=== PATIENT | female | born 1960 | race Caucasian/White ===

== ENCOUNTER 2017-01-27 15:09 | Emergency (ER) | payer MEDICARE ==
[~2017-01-27] VITALS: Ht 170.1 cm; Wt 71.2 kg
[~2017-01-27 15:09] MED LIST: AMOXICILLIN500 MG PO; ATIVAN0.5 MG PO; BACTRIM DS 8001 TA1 PO; CIPRO500 MG PO; CYCLOBENZAPRINE5 M3 PO; DIFLUCAN150 MG PO; HYDROCODONE BIT1 T11 PO; KEFLEX500 MG PO; MEDROL DOSEPAK4 MG PO; MOTRIN800 MG PO; NAPROSYN500 MG PO; NORCO 325 MG-51 TAB PO; NORCO 5-325 TA1 EACH PO; PARAFON FORTE500 MG PO; PENTASA500 MG PO; PEPCID20 MG PO; PREDNISONE50 MG PO; PREVACID30 M1 PO; PREVACID30 MG PO; TRAMADOL HCL50 MG PO; TRIMOX500 MG PO; ULTRAM50 MG PO; VICODIN 5/500 505 MG PO; VISTARIL25 MG PO; XANAX0.25 MG PO; ZOLOFT50 MG PO; [UNRECOGNIZED DRUG - OTHER] PO
[2017-01-27] MEDS ORDERED: ACETAMINOPHEN-O1 TAB PO (15:35)
[2017-01-27 16:01] LABS: BASO % 0.3 % (0.0-1.0); EOS # 0.1 10*3/uL (0.0-0.4); EOS % 1.4 % (1.0-4.0); HEMATOCRIT 44.9 % (37.0-47.0); HEMOGLOBIN 14.6 g/dl (12.0-16.0); LYMPH # 0.9 10*3/uL (1.3-4.4); LYMPH % 12.2 % (27.0-41.0); MEAN CELL VOLUME 89.3 fl (81.0-99.0); MEAN CORPUSCULAR HGB CONC 32.5 g/dl (33.0-37.0); MEAN PLATELET VOLUME 11.5 fl (9.6-12.3); MONO # 0.7 10*3/uL (0.1-1.0); MONO % 8.6 % (3.0-9.0); NEUT # 5.9 10*3/uL (2.3-7.9); NEUT % 77.2 % (47.0-73.0); PLATELET COUNT AUTOMATED 246 10*3/uL (130-400); RED BLOOD COUNT 5.03 10*6/uL (4.10-5.10); RED CELL DISTRI WIDTH 13.8 % (0-14.5); WHITE BLOOD COUNT 7.7 10*3/uL (4.8-10.8)
[2017-01-27 16:15] LABS: ALBUMIN 3.4 gm/dl (3.1-4.5); ALKALINE PHOSPHATASE 69 U/L (45-117); BILIRUBIN, TOTAL 0.2 mg/dl (0.2-1.0); BUN 14 mg/dl (7-24); CARBON DIOXIDE 29 mmol/L (21-32); CHLORIDE 105 mmol/L (98-107); EST GLOM FILT AFRICAN AMERICAN > 60 ml/min; GLUCOSE 82 mg/dL (65-99); POTASSIUM 3.9 mmol/L (3.5-5.1); SGOT/AST 13 IU/L (3-35); SGPT/ALT 11 U/L (12-78); SODIUM 141 mmol/L (136-145); TOTAL PROTEIN 7.7 gm/dL (6.4-8.2)
[2017-01-27 16:36] LABS: BILIRUBIN NEGATIVE (NEGATIVE); BLOOD NEGATIVE (NEGATIVE); CLARITY SL CLOUDY (CLEAR); COLOR YELLOW (YELLOW); GLUCOSE NEGATIVE (NEGATIVE); KETONE NEGATIVE (NEGATIVE); LEUKO ESTERASE NEGATIVE (NEGATIVE); NITRITE NEGATIVE (NEGATIVE); PROTEIN NEGATIVE (NEGATIVE); UROBILINOGEN 0.2 E.U./dl (0.2-1.0)
[2017-01-27 16:49] LABS: RBC 0-2 rbc/hpf (0-2); WBC 0-2 wbc/hpf (0-5)
[2017-01-27 16:50] LABS: BACTERIA 3+; URINE REFLEX COMMENT YES (NO)
[2017-01-27] MEDS ORDERED: PROBIOTIC1 EAC2 PO (18:50)
[2017-01-27] MEDS ORDERED: FLAGYL500 MG PO (18:50)
[2017-01-27] MEDS ORDERED: PREDNISONE10 MG PO (18:50)
== END 2017-01-27 19:26 | disposition home or self-care (01) ==
LOC: ED 15:09
PROVIDERS: Nurse Practitioner Family
DX: K50.10 Crohn's disease of large intestine without complications (principal); K52.9 Noninfective gastroenteritis and colitis, unspecified; F17.200 Nicotine dependence, unspecified, uncomplicated; F41.9 Anxiety disorder, unspecified; K21.9 Gastro-esophageal reflux disease without esophagitis

== ENCOUNTER 2017-01-30 14:49 | Emergency (ER) | payer MEDICARE ==
[~2017-01-30] VITALS: Wt 71.2 kg
[~2017-01-30 14:49] MED LIST changes: +ACETAMINOPHEN-O1 TAB PO; +FLAGYL500 MG PO; +PREDNISONE10 MG PO; +PROBIOTIC1 EAC2 PO
[2017-01-30 15:38] LABS: BASO % 0.4 % (0.0-1.0); EOS # 0.1 10*3/uL (0.0-0.4); EOS % 0.6 % (1.0-4.0); HEMATOCRIT 45.5 % (37.0-47.0); HEMOGLOBIN 14.6 g/dl (12.0-16.0); LYMPH # 0.9 10*3/uL (1.3-4.4); LYMPH % 11.3 % (27.0-41.0); MEAN CELL VOLUME 88.9 fl (81.0-99.0); MEAN CORPUSCULAR HGB 28.5 pg (27.0-31.0); MEAN CORPUSCULAR HGB CONC 32.1 g/dl (33.0-37.0); MONO # 1.1 10*3/uL (0.1-1.0); MONO % 13.1 % (3.0-9.0); NEUT % 74.1 % (47.0-73.0); PLATELET COUNT AUTOMATED 267 10*3/uL (130-400); RED BLOOD COUNT 5.12 10*6/uL (4.10-5.10); RED CELL DISTRI WIDTH 13.5 % (0-14.5); WHITE BLOOD COUNT 8.1 10*3/uL (4.8-10.8)
[2017-01-30 15:54] LABS: ALBUMIN 3.1 gm/dl (3.1-4.5); ALKALINE PHOSPHATASE 64 U/L (45-117); BILIRUBIN, TOTAL 0.2 mg/dl (0.2-1.0); BUN 11 mg/dl (7-24); CARBON DIOXIDE 28 mmol/L (21-32); CHLORIDE 104 mmol/L (98-107); EST GLOM FILT AFRICAN AMERICAN > 60 ml/min; GLUCOSE 96 mg/dL (65-99); SGOT/AST 16 IU/L (3-35); SGPT/ALT 11 U/L (12-78); SODIUM 141 mmol/L (136-145); TOTAL PROTEIN 7.5 gm/dL (6.4-8.2)
[2017-01-30 16:01] LABS: BILIRUBIN 1+ (NEGATIVE); BLOOD TRACE-INTACT (NEGATIVE); CLARITY SL CLOUDY (CLEAR); COLOR YELLOW (YELLOW); GLUCOSE NEGATIVE (NEGATIVE); KETONE TRACE (NEGATIVE); LEUKO ESTERASE TRACE (NEGATIVE); NITRITE POSITIVE (NEGATIVE); PH 5.5 (5.0-9.0); PROTEIN TRACE (NEGATIVE); SPECIFIC GRAVITY 1.025 (1.005-1.030)
[2017-01-30 16:15] LABS: BACTERIA 2+; MUCOUS TRACE; RBC 0-2 rbc/hpf (0-2); URINE REFLEX COMMENT YES (NO)
[2017-01-30 16:23] LABS: URINE AMPHETAMINES < 1000 (1000ng/ml); URINE BARBITURATES < 200 (200ng/ml); URINE COCAINE < 300 (300ng/ml)
[2017-01-30] MEDS ORDERED: CIPRO500 MG PO (16:23)
== END 2017-01-30 16:34 | disposition home or self-care (01) ==
LOC: ED 14:49
PROVIDERS: Nurse Practitioner Family
DX: N39.0 Urinary tract infection, site not specified (principal); F41.9 Anxiety disorder, unspecified; K21.9 Gastro-esophageal reflux disease without esophagitis; F17.200 Nicotine dependence, unspecified, uncomplicated; Z79.899 Other long term (current) drug therapy

== ENCOUNTER 2017-03-28 11:36 | Inpatient (IN) | payer MEDICARE ==
[~2017-03-28] VITALS: Ht 170.2 cm; Wt 65.6 kg
[2017-03-28] MEDS ORDERED: FAMOTIDINE40 MG PO (11:50)
[2017-03-28] MEDS ORDERED: PEPCID20 MG PO (11:51)
[2017-03-28] MEDS ORDERED: OXYCODONE AND A1 TA4 PO (11:51)
[2017-03-28 11:52] VITALS: BP 126/90
[2017-03-28 12:24] LABS: BASO % 0.2 % (0.0-1.0); BILIRUBIN 2+ (NEGATIVE); BLOOD TRACE-LYSED (NEGATIVE); CLARITY CLOUDY (CLEAR); COLOR YELLOW (YELLOW); EOS % 0.4 % (1.0-4.0); GLUCOSE NEGATIVE (NEGATIVE); HEMATOCRIT 45.6 % (37.0-47.0); HEMOGLOBIN 14.2 g/dl (12.0-16.0); KETONE 1+ (NEGATIVE); LEUKO ESTERASE NEGATIVE (NEGATIVE); LYMPH # 0.9 10*3/uL (1.3-4.4); LYMPH % 9.6 % (27.0-41.0); MEAN CELL VOLUME 88.5 fl (81.0-99.0); MEAN CORPUSCULAR HGB 27.6 pg (27.0-31.0); MEAN CORPUSCULAR HGB CONC 31.1 g/dl (33.0-37.0); MEAN PLATELET VOLUME 10.8 fl (9.6-12.3); MONO # 1.1 10*3/uL (0.1-1.0); NEUT # 7.1 10*3/uL (2.3-7.9); NEUT % 77.4 % (47.0-73.0); NITRITE NEGATIVE (NEGATIVE); PLATELET COUNT AUTOMATED 282 10*3/uL (130-400); PROTEIN TRACE (NEGATIVE); RED BLOOD COUNT 5.15 10*6/uL (4.10-5.10); RED CELL DISTRI WIDTH 14.6 % (0-14.5); WHITE BLOOD COUNT 9.1 10*3/uL (4.8-10.8)
[2017-03-28 12:34] LABS: BACTERIA TRACE; RBC 0-2 rbc/hpf (0-2)
[2017-03-28 12:35] LABS: URINE REFLEX COMMENT NO (NO)
[2017-03-28 12:40] LABS: ALBUMIN 2.7 gm/dl (3.1-4.5); BILIRUBIN, TOTAL 0.3 mg/dl (0.2-1.0); BUN 8 mg/dl (7-24); CARBON DIOXIDE 26 mmol/L (21-32); CHLORIDE 103 mmol/L (98-107); EST GLOM FILT AFRICAN AMERICAN > 60 ml/min; GLUCOSE 86 mg/dL (65-99); POTASSIUM 4.4 mmol/L (3.5-5.1); SGOT/AST 19 IU/L (3-35); SGPT/ALT 8 U/L (12-78); SODIUM 137 mmol/L (136-145); TOTAL PROTEIN 7.2 gm/dL (6.4-8.2)
[2017-03-28 12:41] LABS: ALKALINE PHOSPHATASE 51 U/L (45-117)
[2017-03-28 18:30] VITALS: BP 107/61
[2017-03-28] MEDS ORDERED: AMITRIPTYLINE10 MG PO (19:10)
[2017-03-29] VITALS: BP 96/51
[2017-03-29 06:51] LABS: BASO % 0.4 % (0.0-1.0); EOS % 0.4 % (1.0-4.0); HEMATOCRIT 42.5 % (37.0-47.0); HEMOGLOBIN 13.3 g/dl (12.0-16.0); IG # 0.1 10*3/uL (0.0-0.1); LYMPH # 0.8 10*3/uL (1.3-4.4); LYMPH % 9.8 % (27.0-41.0); MEAN CELL VOLUME 89.9 fl (81.0-99.0); MEAN CORPUSCULAR HGB 28.1 pg (27.0-31.0); MEAN CORPUSCULAR HGB CONC 31.3 g/dl (33.0-37.0); MEAN PLATELET VOLUME 11.3 fl (9.6-12.3); MONO % 11.5 % (3.0-9.0); NEUT # 6.6 10*3/uL (2.3-7.9); NEUT % 77.2 % (47.0-73.0); PLATELET COUNT AUTOMATED 287 10*3/uL (130-400); RED BLOOD COUNT 4.73 10*6/uL (4.10-5.10); RED CELL DISTRI WIDTH 14.7 % (0-14.5); WHITE BLOOD COUNT 8.5 10*3/uL (4.8-10.8)
[2017-03-29 07:10] LABS: HEMOGLOBIN A1c 5.9 % (4.8-5.6)
[2017-03-29 07:15] LABS: BUN 9 mg/dl (7-24); CARBON DIOXIDE 22 mmol/L (21-32); CHLORIDE 104 mmol/L (98-107); CHOLESTEROL 152 mg/dL (<200); EST GLOM FILT AFRICAN AMERICAN > 60 ml/min; GLUCOSE 53 mg/dL (65-99); HDL CHOLESTEROL 33 mg/dl (40-60); LDL CHOLESTEROL 83 mg/dL (9-159); POTASSIUM 3.9 mmol/L (3.5-5.1); SODIUM 141 mmol/L (136-145); TRIGLYCERIDES 181 mg/dl (<150); VLDL CHOLESTEROL 36 mg/dL (6-40)
[2017-03-29 07:22] LABS: FREE T4 1.34 ng/dl (0.76-1.46)
[2017-03-29 07:50] LABS: FOLIC ACID 14.83 ng/mL (>5.38)
[2017-03-29 08:00] VITALS: BP 100/52
[2017-03-29 08:04] LABS: VITAMIN D, 25-HYDROXY 7.9 ng/mL (30-100)
[2017-03-29 11:48] VITALS: BP 114/65
[2017-03-29] MEDS ORDERED: KROGER NIC21 MG/24 H T (13:56)
[2017-03-29] MEDS ORDERED: PROTONIX40 M1 IV (13:56)
[2017-03-29] MEDS ORDERED: B12,B-12,B 12500 MC1 PO (13:56)
[2017-03-29] MEDS ORDERED: VITAMIN D50000 I3 PO (13:56)
[2017-03-29] MEDS ORDERED: MORPHINE SULF2 MG/M1 IV (13:56)
[2017-03-29] MEDS ORDERED: ONDANSETRON H2 MG/ML IV (13:56)
== END 2017-03-29 16:20 | disposition short-term general hospital (02) | DRG 754 ==
LOC: ED 11:36 → EDHOLD 17:43 → 4E 17:43
PROVIDERS: Internal Medicine; Nurse Practitioner Family
DX: C56.9 Malignant neoplasm of unspecified ovary (principal); E43 Unspecified severe protein-calorie malnutrition; C79.89 Secondary malignant neoplasm of other specified sites; K50.014 Crohn's disease of small intestine with abscess; R18.8 Other ascites; F41.9 Anxiety disorder, unspecified; F17.210 Nicotine dependence, cigarettes, uncomplicated; K21.9 Gastro-esophageal reflux disease without esophagitis; Z82.49 Family history of ischemic heart disease and other diseases of the circulatory system; Z79.899 Other long term (current) drug therapy; Z79.1 Long term (current) use of non-steroidal anti-inflammatories (NSAID); Z68.22 Body mass index [BMI] 22.0-22.9, adult; Z80.0 Family history of malignant neoplasm of digestive organs

== ENCOUNTER 2017-09-21 18:55 | Inpatient (IN) | payer MEDICARE ==
[~2017-09-21] VITALS: Ht 170.2 cm; Wt 50.0 kg
--- NOTE | ~2017-09-21 | PR ---
[place], [place] PROGRESS NOTE NAME: GUILLERMO GIBSON UNIT #: [id number] ROOM: [place] [address] DOCTOR: GHAZALA ROBIN MD BIRTHDATE: [birth year] DOS: 09/22/2017 The patient was seen because of ovarian cancer, anasarca, full consult to follow. The patient's workup is being done. GHAZALA ROBIN MD CM:PNTRANS 9 [phone] GHAZALA ROBIN MD 09/22/17 1828 interface
--- NOTE | ~2017-09-21 | CON ---
[place], [place] REPORT OF CONSULTATION NAME: GUILLERMO GIBSON UNIT #: [id number] ROOM: [facility] DOCTOR: KITTY WESTON MD BIRTHDATE: [birth year] DOS: 09/23/2017 PULMONARY CONSULTATION EVALUATION AND MANAGEMENT REASON FOR CONSULTATION: To assess the patient for symptoms of shortness of breath and other respiratory problems. HISTORY OF PRESENT ILLNESS: A 56-year-old unfortunate female patient who has been noted with progressive cachexia with the diagnosis of advanced cancer of the ovaries. The patient was noted with recurrence of the ascitic fluid. The patient has been treated with several paracentesis in the past. She has been admitted in [facility]. The patient with a diagnosis of malignancy was established at that time. She has been admitted to the hospital for this patient under care of the hospitalist service of the patient on 09/21/2017. In the consultation, physician request as a hospitalist services. The patient has been currently noted as severely emaciated, noted with symptoms of shortness of breath. The patient has tightness in the chest described on admission. She was also complaining of nonspecific chest pain as well. The patient does report only minimal cough. There were symptoms of hemoptysis. She has not been noted any symptoms of hemoptysis. She has been noted with symptoms of progressive weight loss. REVIEW OF SYSTEMS: Very limited. She was noted as severely weak, emaciated, and bedbound. EYES: Denies any burning, redness, or discharge. EARS, NOSE, AND THROAT SYMPTOMS: No sore throat, hoarseness, otalgia, postnasal drainage, or epistaxis. CARDIOVASCULAR: Denies anginal pain, edema, or pain of the lower extremity. GASTROINTESTINAL: Abdominal distention. The patient has been noted intermittently with bloating. Pain was also described in the abdomen of the patient intermittently as well. There were symptoms of hematochezia. GENITOURINARY: Dysuria, suprapubic pain, and hematuria. MUSCULOSKELETAL: No acute joint pain, redness, or tenderness. CENTRAL NERVOUS SYSTEM: Progressive weakness. The patient was noted without any focal deficits. PAST MEDICAL HISTORY: 1. The patient was known with a diagnosis of metastatic malignancy in the abdomen, most likely originating from the ovary that has not been treated. 2. History of Crohn's disease for the patient with past abscesses formation. 3. History of diverticulosis and diverticulitis. 4. Deep venous thrombosis in left lower extremity, which has been treated previously with Xarelto. 4. Progressive cachexia. The patient has weight loss secondary to malignancy. 5. Malignant peritoneal fluid. 6. History of vitamin D deficiency. 7. Anxiety disorder. SOCIAL HISTORY: The patient is currently not , was living at home. She does have a boyfriend, who lives with the patient. She was noted lifetime [place], [place] REPORT OF CONSULTATION NAME: GUILLERMO GIBSON UNIT #: [id number] ROOM: [facility] DOCTOR: KITTY WESTON MD BIRTHDATE: [birth year] nonsmoker. No history of chronic alcohol use or any illicit drugs use described. PAST SURGICAL HISTORY: Noted as: 1. Knee surgery. 2. Laparoscopy. 3. T and A. 4. Several paracentesis in the past. FAMILY HISTORY: The patient reported as mother at the age of 61-year-old from complication of colon cancer. Father at the age of 61-year-old from heart attack. HOME MEDICATIONS: Noted use of Protonix, vitamin D, OxyContin, and previous use of Xarelto. DRUG ALLERGY HISTORY: The patient was reported as no known drug allergies. PHYSICAL EXAMINATION: GENERAL: This is a 56-year-old extremely ill looking female noted severe cachexia of the patient and ill looking. She was seen for this patient at the bedside. She was not showing any signs of respiratory distress, using oxygen supplementation nasal cannula. VITAL SIGNS: Height was recorded for the patient on this admission as 5 feet 7 inches, weight of 110 pounds with BMI 17.2. Vital signs for the patient, which has been recorded shows temperature noted as normal, respiratory rate 17-20, heart rate of 110-92, blood pressure of 88/54-118/70. Intake is 506, output was 100 mL reported without Godinez catheter. Pulse oxygen saturation 96% at 2 liters nasal cannula reported. HEENT: Examination shows head was atraumatic. EYES: Nonicterus. Sunken eyes of the patient was noted. Severe loss of muscle mastication was also visible obviously. No obvious icterus. CARDIOVASCULAR: S1, S2 is audible. LUNGS: The patient was noted with decreased breath sounds in the lower portion of the lungs bilaterally. ABDOMEN: Noted with the distention without any tenderness. CENTRAL NERVOUS SYSTEM. Severe loss of muscle mass for the patient was noted with generalized weakness, but there were no focal deficits. MUSCULOSKELETAL: No acute deformities. LABORATORY DATA: On admission, Lactic acid on 09/21/2017 was 2.5, follow up lactic acid 2.1 same day. The PT/INR 1.2 and PTT normal on admission. The CBC on admission 09/21/2017, hemoglobin 11.5, otherwise normal. CMP of the patient of 09/21/2017, BUN 41, creatinine 1.33 on admission. Sodium 132. Albumin 2.1. VQ scan for the patient that was done for this patient on this admission 09/22/2017 was noted normal perfusion study. Blood culture from the showed no bacterial growth. The culture of the sputum of the patient of 09/22/2017, few white blood cells, moderate epithelial cells, moderate gram-positive cocci in pairs and chains, moderate gram-negative bacilli with moderate gram-negative bacilli growth was noted with pending final identification and sensitivity [place], [place] REPORT OF CONSULTATION NAME: GUILLERMO GIBSON UNIT #: [id number] ROOM: [facility] DOCTOR: SAMM JENNINGS MD,[facility] BIRTHDATE: [birth year] results. CA-125 level are noted severely elevated at 415. CBC this morning, hemoglobin 8.3, hematocrit 26.5, WBC count was 12.5, and platelet count of 157. PT/PTT repeated again this morning shows INR of 1.2, PTT therapeutic 76.6. CMP of the patient of 09/23/2017, BUN of 57, creatinine 1.61. Sodium 133. Albumin of 3.0. Total bilirubin of 1.6. Ultrasound of the lower extremity repeated for this patient shows nonocclusive DVT on the left superficial femoral veins. The age was undetermined. The chest x-ray of the patient does not show any acute abnormality. CT scan of the chest, which was done without contrast limited the finding of the mediastinum was noted with a very small left-sided pleural fluid. Remaining lung was noted clear of any abnormality including abnormal pulmonary nodules or mass-like lesions. CT scan images were personally reviewed from the PACS images as well. The abdominal portion of the CT scan for this patient, the findings were described in the radiologist report for this patient has a large loculated complex fluid collection in the anterior abdominal wall occupying the majority of the abdomen displacing the bowel for this patient in the abdominal contents posteriorly. The collection does contained the fluid and air. The source of the air was noted unclear. A 7.4 cm cyst was described in the right ovary as well. Ultrasound for the patient was reported. Cachexia and finding of anasarca was also reported. Ultrasound of the abdomen was completed on 09/22/2017 for the patient that reported with findings of large loculated complex fluid collection of the patient anterior abdomen. A 15.4 x 5.1 cm in size sludge were described in the gallbladder. Innumerable septation were described in the collection. IMPRESSION: 1. The patient who has been currently admitted to the hospital. The patient noted symptoms of shortness of breath most likely related to the current complex. ascitic fluid in the abdomen of the patient resulting in some elevation of the hemidiaphragm resulting in shortness of breath. The patient has been known with advanced ovarian cancer, which was untreated for this patient. 2. Current ____ gram-negative bacilli most likely would be considered colonization of the upper airways and not consistent with any acute pneumonia. 3. History of chronic deep venous thrombosis of the patient, which has been currently noted to be present again for this patient. The patient was taking Xarelto until 10 days ago prior to the admission to the hospital. There was no evidence of pulmonary embolism. 4. Severe cachexia. The patient with progressive weight loss, was noted to decrease oral intake as well. PLAN AND RECOMMENDATIONS: From the pulmonary standpoint. The finding has been discussed with the patient and the patient's boyfriend. Palliative care was suggested for this patient. He is worried about the patient's nutritional status and the patient with severe protein calorie malnutrition. For this patient at this time, minimum recommendation would be to have a PEG tube inserted for this patient if noted surgically or endoscopy feasible. Consider hospice care assessment. I would not recommend any antibiotics for the patient's current sputum culture results. Continue medical management for deep venous thrombosis. The patient currently getting therapeutic unfractionated heparin, the patient could be switched back to either Coumadin or resuming the dose of Xarelto for this patient or Eliquis for this patient, therapeutic dose [place], [place] REPORT OF CONSULTATION NAME: GUILLERMO GIBSON UNIT #: [id number] ROOM: [facility] DOCTOR: KITTY WESTON MD BIRTHDATE: [birth year] for this patient. Other supportive plan and management. The patient's overall prognosis is noted extremely poor. Symptomatic management, shortness of breath could be considered with use of the morphine sulfate orally or intravenously as needed. Oxygen supplementation may be given to maintain oxygen saturation of 92% or greater. The patient has already been assessed and managed by the Oncology services. Surgical consultation has been also noted in progress for this patient for the assessment of the current complex loculated fluid of the patient in the abdomen ascitic fluid of the patient. Possibility of malignant fluid for this patient and/or infection combination could be considered. KITTY QUIJANO MD CM:CONSTR:REPORT OF CONSULTATION 1405 09/24/17 0513 interface
--- NOTE | ~2017-09-21 | CON ---
[place], [place] REPORT OF CONSULTATION NAME: GUILLERMO GIBSON UNIT #: [id number] ROOM: 524 DOCTOR: KARL ROSAS MD BIRTHDATE: [birth year] DOS: 09/22/2017 HISTORY OF PRESENT ILLNESS: 1. The patient is a 56-year-old female with metastatic ovarian cancer. 2. Severe protein-calorie malnutrition and cachexia with adult failure to thrive. 3. Abdominal pain and large ascites related to ovarian cancer. 4. History of right ovarian mass. 5. History of left lower extremity deep venous thrombosis. 6. Generalized muscle wasting and adult failure to thrive. 7. History of nicotine smoke dependence. 8. Mixed hyperlipidemia. 9. History of major depression, recurrent, moderate. 10. Generalized anxiety disorder. 11. History of Crohn's disease. The patient is presently admitted to ICU at [facility] with a full code status with large ascites, generalized weakness and muscle wasting with severe protein-calorie malnutrition and a diagnosis of metastatic ovarian cancer. The patient, in the past, had refused chemotherapy. Dr. Reina, the oncologist, is on consult and a paracentesis was performed by Dr. Goodson, the radiologist. The patient is admitted under the care of Dr. Alexsander Vazquez. The patient says she is very uncomfortable and hurts at different places and is very restless and uncomfortable in almost any position. REVIEW OF SYSTEMS: LUNGS: No increasing shortness of breath or wheezing. GASTROINTESTINAL: No nausea, vomiting, diarrhea or constipation. Just some abdominal pain and distention. SOCIAL HISTORY: Previous history of nicotine smoke dependence. Denies any alcohol or drug abuse. FAMILY HISTORY: Noncontributory. ALLERGIES: No known drug allergies. MEDICATIONS: The patient is on oxycodone, temazepam, fentanyl IV. PHYSICAL EXAMINATION: GENERAL: Alert and oriented x 3, cachectic with generalized muscle wasting and weakness, some abdominal distention. HEENT AND NECK: Extraocular movements are intact. Sclerae are anicteric. Oral mucosa is moist and clean. No obvious facial weakness. Neck is supple without any lymphadenopathy. No thyromegaly. No JVD. No carotid arterial bruits. LUNGS: Clear to auscultation. No wheezing. No rhonchi. CARDIOVASCULAR SYSTEM: Heart rate is regular in rate and rhythm. S1 and S2 normally audible. No significant murmur or any other abnormal cardiac sounds. ABDOMEN: Soft, nontender. No obvious organomegaly. Bowel sounds are present. No obvious herniation. [place], [place] REPORT OF CONSULTATION NAME: GUILLERMO GIBSON UNIT #: [id number] ROOM: 524 DOCTOR: KARL ROSAS MD BIRTHDATE: [birth year] EXTREMITIES: Without significant cyanosis or edema. Warm to touch. CENTRAL NERVOUS SYSTEM: Alert and oriented x 3. Cranial nerves II-XII are intact. Speech is normal. The patient is able to move all extremities. Normal muscle strength. Deep tendon reflexes are equal on both sides. Plantars were downgoing. LABORATORY DATA: Echocardiogram shows reduced left ventricular ejection fraction. Ultrasound of the abdomen and pelvis showing hepatic steatosis, large loculated complex fluid collection in the anterior abdomen. Doppler study showing left deep vein thrombosis. V/Q scan showing no signs of PE. Hemoglobin low at 10.9, white cell count 11,200. BUN and creatinine 45 and 1.3. IMPRESSION AND PLAN: The patient with advanced ovarian cancer with metastatic disease, cachexia, severe protein calorie malnutrition with an albumin of 2.1, generalized muscle wasting and weakness with poor prognosis. I had a detailed discussion with the patient and her boyfriend, Larry Hooper. The patient wants him to be his durable power of senior trial attorney, but she is alert and oriented and able to make decisions for herself at this time. The patient is in the ICU and understands that she wants to avoid aggressive treatment like intubation and mechanical ventilation, also CPR and cardioversion. The patient says that she would like to have a DNR comfort care code status and definitely would not like to be on mechanical ventilation. The patient also is interested in getting a consult with hospice to follow her at home where she is taken care of by her boyfriend who stays with her. Continue comfort care and nutritional support with bed sore precaution and every 2-hour turning and comfort care treatment only, with good pain and anxiety control and watch out for any respiratory distress, which could be treated with morphine and Ativan and use of atropine as necessary. KARL ROSAS MD CM:CONSTR:REPORT OF CONSULTATION 1905 09/23/17 0115 interface
--- NOTE | ~2017-09-21 | PR ---
[place], [place] PROGRESS NOTE NAME: GUILLERMO GIBSON UNIT #: [id number] ROOM: [facility] DOCTOR: GHAZALA ROIBN MD BIRTHDATE: [birth year] DOS: 09/23/2017 SUBJECTIVE: The patient was evaluated. Continues to have some abdominal pain. PHYSICAL EXAMINATION: GENERAL: Pleasant woman in no acute distress. VITAL SIGNS: Stable. She is afebrile. HEENT: Normocephalic, atraumatic NECK AND THYROID: Supple. No JVD, thyromegaly, or lymphadenopathy. HEART: Normal S1, S2. Regular rate and rhythm. LUNGS: Clear to auscultation and percussion. EXTREMITIES: Normal ROM. No clubbing. No edema. ASSESSMENT: 1. Metastatic ovarian cancer diagnosed in 03/2017 at [facility], but she refused any chemotherapy. She did go for surgery, but she was closed as per the family. 2. Possibly hypercoagulable state. 3. Acute renal failure with tubular necrosis. 4. Leukocytosis, reactive. 5. Anemia of neoplastic disorder. PLAN: We will wait for the records from [facility]. I have discussed with the family, overall condition is not that great. We will keep a close watch at this time. I had a detailed discussion with the family about it, and they seemed to understand it. Ample time was given for the patient ask me questions. GHAZALA ROBIN MD CM:PNTRANS [phone] GHAZALA ROBIN MD 09/24/17 0235 interface
[~2017-09-21 18:55] MED LIST changes: +AMITRIPTYLINE10 MG PO; +B12,B-12,B 12500 MC1 PO; +FAMOTIDINE40 MG PO; +KROGER NIC21 MG/24 H T; +MORPHINE SULF2 MG/M1 IV; +ONDANSETRON H2 MG/ML IV; +OXYCODONE AND A1 TA4 PO; +PROTONIX40 M1 IV; +VITAMIN D50000 I3 PO
[2017-09-21 19:00] VITALS: BP 112/80
[2017-09-21 19:30] VITALS: BP 120/78
[2017-09-21 19:41] LABS: HEMATOCRIT 37.3 % (37.0-47.0); HEMOGLOBIN 11.5 g/dl (12.0-16.0); MEAN CELL VOLUME 84.6 fl (81.0-99.0); MEAN CORPUSCULAR HGB 26.1 pg (27.0-31.0); MEAN CORPUSCULAR HGB CONC 30.8 g/dl (33.0-37.0); MEAN PLATELET VOLUME 11.1 fl (9.6-12.3); PLATELET COUNT AUTOMATED 272 10*3/uL (130-400); RED BLOOD COUNT 4.41 10*6/uL (4.10-5.10); RED CELL DISTRI WIDTH 22.2 % (0-14.5); WHITE BLOOD COUNT 9.4 10*3/uL (4.8-10.8)
[2017-09-21 19:50] LABS: LIPASE 26 U/L (73-393)
[2017-09-21 19:51] LABS: ACT PARTIAL THROMBO TIME 30.1 SECONDS (20.8-31.5); INTERNATIONAL NORM RATIO 1.2 (2.0-3.5)
[2017-09-21 19:58] LABS: ALBUMIN 2.1 gm/dl (3.1-4.5); ALKALINE PHOSPHATASE 129 U/L (45-117); BUN 41 mg/dl (7-24); CHLORIDE 95 mmol/L (98-107); CREATININE 1.33 mg/dL (0.55-1.02); POTASSIUM 4.8 mmol/L (3.5-5.1); SGOT/AST 15 IU/L (3-35); SGPT/ALT 7 U/L (12-78); SODIUM 132 mmol/L (136-145); TOTAL PROTEIN 6.4 gm/dL (6.4-8.2)
[2017-09-21 20:02] VITALS: BP 118/62
[2017-09-21 20:02] LABS: TOTAL CELLS COUNTED 100 #CELLS
[2017-09-21 20:04] LABS: PLATELET SUFFICIENCY NORMAL (NORMAL)
[2017-09-21 20:05] LABS: TROPONIN I < 0.015 ng/ml (<0.045)
--- NOTE | 2017-09-21 20:15 | NUR ---
PT DENIES ANY PAIN AT THIS TIME DILAUDID EFFECTIVE FOR PAIN.
[2017-09-21 21:02] VITALS: BP 118/68
[2017-09-21 22:02] VITALS: BP 124/68
[2017-09-21 23:19] VITALS: BP 118/70
--- NOTE | 2017-09-21 23:20 | NUR ---
PT DENIES ANY PAIN AT THIS TIME, DILAUDID EFFECTIVE. UNABLE TO OBTAIN SPUTUM, PT UNABLE TO COUGH.
[2017-09-22] VITALS (7 sets, daily range): BP systolic 85–118; BP diastolic 50–72
--- NOTE | 2017-09-22 00:33 | NUR ---
A 56, admitted to , under the services of BENNETT Landry DO with a diagnosis of CHEST PAIN AND SHORTNESS OF BREATH. Chief complaint is CHEST TIGHTNESS AND NAUSEA THAT STARTED SEVERAL DAYS AGO.. Patient arrived via OTHER from ER. Monitor applied. Initial assessment completed. Vital signs taken and recorded. BENNETT LANDRY DO notified of admission to the unit. Orders received. See assessment for past medical history, medications and allergies. Patient and/or family oriented to unit. [facility] visitation policy reviewed. Clothing/patient valuable form completed. ABDIFATAH DORAN A
[2017-09-22] MEDS ORDERED: OXYCODONE HCL10 M1 PO (01:52)
[2017-09-22] MEDS ORDERED: XARELTO10 MG PO (01:53)
--- NOTE | 2017-09-22 03:27 | NUR ---
PT IN BED, RESTING COMFORTABLY WITH EYES CLOSED. FAMILY IN ROOM, SLEEPING.
[2017-09-22 04:03] LABS: HEMOGLOBIN 10.9 g/dl (12.0-16.0); MEAN CORPUSCULAR HGB 26.5 pg (27.0-31.0); MEAN CORPUSCULAR HGB CONC 31.1 g/dl (33.0-37.0); MEAN PLATELET VOLUME 10.7 fl (9.6-12.3); PLATELET COUNT AUTOMATED 231 10*3/uL (130-400); RED BLOOD COUNT 4.12 10*6/uL (4.10-5.10); RED CELL DISTRI WIDTH 22.3 % (0-14.5); WHITE BLOOD COUNT 11.2 10*3/uL (4.8-10.8)
--- NOTE | 2017-09-22 04:10 | NUR ---
PT TRANSFERRED TO ICU #11 FROM [facility]. PT DROWSY BUT AWAKENS AND ANSWERS QUESTIONS APPROPRIATELY. RESP NONLABORED. SKIN WARM AND DRY. RIGHT MEDIPORT PATENT, DRESSING DRY AND INTACT. BP 95/59, T 97.3, P 108, R 12, POX 98% ON RA. NO ACUTE DISTRESS NOTED. ST ON MONITOR.
[2017-09-22 04:20] LABS: ACT PARTIAL THROMBO TIME 39.1 SECONDS (20.8-31.5); INTERNATIONAL NORM RATIO 1.2 (2.0-3.5)
[2017-09-22 04:21] LABS: ALBUMIN 2.1 gm/dl (3.1-4.5); CREATININE 1.31 mg/dL (0.55-1.02); PHOSPHOROUS 3.8 mg/dL (2.5-4.9); POTASSIUM 4.9 mmol/L (3.5-5.1); TOTAL PROTEIN 6.2 gm/dL (6.4-8.2)
[2017-09-22 04:22] LABS: FREE T4 1.28 ng/dl (0.76-1.46)
[2017-09-22 04:27] LABS: THYROID STIM HORMONE (HS) 0.653 uIU/ml (0.358-4.75)
[2017-09-22 04:32] LABS: PLATELET SUFFICIENCY NORMAL (NORMAL); TOTAL CELLS COUNTED 100 #CELLS
[2017-09-22 04:33] LABS: TOXIC GRANULATION SLIGHT
--- NOTE | 2017-09-22 07:24 | NUR ---
DR. NIEVES AWARE OF CONSULT.
--- NOTE | 2017-09-22 07:27 | NUR ---
MEDICATED WITH PRN MORPHINE PER ORDER AND REQUEST.
[2017-09-22 07:57] LABS: VITAMIN D, 25-HYDROXY 5.3 ng/mL (30-100)
--- NOTE | 2017-09-22 08:25 | NUR ---
PATIENT TAKEN TO RADIOLOGY FOR MULTIPLE TESTS.
--- NOTE | 2017-09-22 08:32 | NUR ---
DR. CARDONA GROUP PAGED.
[2017-09-22 08:35] LABS: BILIRUBIN 2+ (NEGATIVE); BLOOD 2+ (NEGATIVE); CLARITY CLOUDY (CLEAR); COLOR YELLOW (YELLOW); GLUCOSE NEGATIVE (NEGATIVE); KETONE TRACE (NEGATIVE); NITRITE NEGATIVE (NEGATIVE); SPECIFIC GRAVITY 1.025 (1.005-1.030)
--- NOTE | 2017-09-22 08:43 | NUR ---
PHYSICAL THERAPY PATIENT TRANSFERRED TO ICU THUS WILL NEED NEW ORDERS WHEN MEDICALLY APPROPRIATE THANK YOU FOR REFERRAL SHANELLE BEEBE PT
[2017-09-22 08:44] LABS: LEUKO ESTERASE TRACE (NEGATIVE)
--- NOTE | 2017-09-22 08:46 | NUR ---
PATIENT NOT AVAILABLE FOR ECHO. OFF THE FLOOR FOR OTHER TESTING.
[2017-09-22 08:53] LABS: BACTERIA 3+; EPITHELIAL CELLS 20-30; MUCOUS 1+
--- NOTE | 2017-09-22 10:48 | NUR ---
[facility] A[facility] in to see patient. Patient requested if I can come back at a later time or even tomorrow because she doesn't feel well at the moment. Will follow at a later time.
--- NOTE | 2017-09-22 12:21 | NUR ---
DR. QUIJANO AWARE OF CONSULT.
--- NOTE | 2017-09-22 12:31 | NUR ---
MEDICATED WITH FENTANYL PER ORDER AND REQUEST.
--- NOTE | 2017-09-22 12:55 | NUR ---
PHYSICAL THERAPY Nursing screen for PT received. Orders for PT present. Maria Luisa Driver,PT
--- NOTE | 2017-09-22 16:55 | NUR ---
MEDICATED WITH PRN FENTANYL PER REQUEST. EARLIER DOSE EFFECTIVE.
--- NOTE | 2017-09-22 17:36 | NUR ---
LEFT A MESSAGE WITH PALLATIVE CARE NURSE.
--- NOTE | 2017-09-22 19:56 | NUR ---
PATIENT GIVEN REGLAN FOR NAUSEA ORDRED.
--- NOTE | 2017-09-22 20:20 | NUR ---
REPORT CALLED TO REGINA GRESHAM RN.
--- NOTE | 2017-09-22 20:31 | NUR ---
DOCTOR ANGELO TO THE FLOOR PATIENT HAS BEEN ASKING FOR PAIN MEDICATION SHE SAID TO GO AHEAD AND GIVE IT NOW. PAIN MEDICATION GIVEN.
[2017-09-23] VITALS (12 sets, daily range): BP systolic 68–97; BP diastolic 34–56
--- NOTE | 2017-09-23 02:10 | NUR ---
MEDICATED WITH MORPHINE 2MG FOR COMPLAINTS OF PAIN. WILL MONITOR FOR EFFECTIVENESS. CALL LIGHT IN REACH.
[2017-09-23 07:08] LABS: MEAN CORPUSCULAR HGB 26.9 pg (27.0-31.0); MEAN CORPUSCULAR HGB CONC 31.3 g/dl (33.0-37.0); MEAN PLATELET VOLUME 11.9 fl (9.6-12.3); RED BLOOD COUNT 3.08 10*6/uL (4.10-5.10); RED CELL DISTRI WIDTH 22.5 % (0-14.5); WHITE BLOOD COUNT 12.5 10*3/uL (4.8-10.8)
[2017-09-23 07:09] LABS: HEMATOCRIT 26.5 % (37.0-47.0); HEMOGLOBIN 8.3 g/dl (12.0-16.0); PLATELET COUNT AUTOMATED 157 10*3/uL (130-400)
[2017-09-23 07:33] LABS: CREATININE 1.61 mg/dL (0.55-1.02); PHOSPHOROUS 3.2 mg/dL (2.5-4.9); POTASSIUM 4.8 mmol/L (3.5-5.1)
--- NOTE | 2017-09-23 07:33 | NUR ---
Medicated with reglan iv per prn order for c/o nausea.
[2017-09-23 07:41] LABS: ACT PARTIAL THROMBO TIME 76.6 SECONDS (20.8-31.5); INTERNATIONAL NORM RATIO 1.2 (2.0-3.5)
[2017-09-23 07:52] LABS: TOTAL CELLS COUNTED 100 #CELLS
[2017-09-23 07:53] LABS: PLATELET SUFFICIENCY NORMAL (NORMAL); TARGET CELLS FEW; TOXIC GRANULATION SLIGHT
--- NOTE | 2017-09-23 08:10 | NUR ---
APPT reviewed result of 76.6 noted which calls for no change per heparin protocol. Heparin gtt remains at 8.8 cc/hr.
--- NOTE | 2017-09-23 09:05 | NUR ---
Medicated with morphine iv per prn order for generalized body pain.
--- NOTE | 2017-09-23 10:00 | NUR ---
States morphine effective for pain.
--- NOTE | 2017-09-23 11:30 | NUR ---
Die Caster in to see patient. Patient resting at this time. Will follow up at a later time.
--- NOTE | 2017-09-23 12:43 | NUR ---
DR. CEE in and examined pt with Dr. Beltre. Discussed plan of care with pt. I notified Dr. Cee that Dr. Allen said he spoke with the pt and her significant other. Dr. Allen had stated that significant other questioned if pt could have a peg tube placed. Significant other is currently not in room at this time but pt denies this.
--- NOTE | 2017-09-23 13:17 | NUR ---
Cigar Binder in to talk to patient. Patient states lives at home with boyfriend. There are no steps in the home. Physician: Leonel Diego [facility] Home health services: none Patient's level of ADLs: MAX ASSIST Patient has working utilities: yes DME: hospital bed and hover round on order per pt Follow-up physician's appointment after d/c: will be made by hospitalist nurse director upon discharge Does patient want to access PORTAL?: no Discharge plan home with palliative care and family. Patient lives at home with her boyfriend. Per pt she was driving and ambulating with assistance up until 5 days ago. Discussed Hospice Care vs Palliative Care. Patient states she does not want Hospice, she wants to be able to keep fighting. "I am not dying." Boyfriend request we come back in about an hour when other family is available to speak with also. industrial relations worker present. WILFRED RASHEED
--- NOTE | 2017-09-23 14:10 | NUR ---
Spoke to patient's significant other and his mother regarding palliative care vs hospice care when the patient is medically stable to be discharged. Pamphlets given to the significant other regarding the differences between palliative and hospice care. Patient request palliative care at this time. Discussed with significant other agency choices for palliative care. They will talk about it and let us know. house worker general present. Patient wants to be a full code and have CPR and intubation done if that is what is needed. Spoke to her nurse, Arsh.
--- NOTE | 2017-09-23 14:43 | NUR ---
Mary Ann Willis nursing detasseling crew supervisor notified of situation with bioethics consult. Updated her on situation with pt changing code status yesterday to DNR-CC and pt boyfriend and his mother here today with case management speaking with pt and case management regarding pt not wanting to be a DNR-CC. Notified Mary Ann that when Dr. Cee rounded earlier on pt, pt stated that she did not want lifesupport, she did not want CPR. States she will text her regarding this and her recommendations at this time.
--- NOTE | 2017-09-23 14:48 | NUR ---
Spoke with Dr. Beltre, awaiting bioethics consult. In the meantime pt is full code as she agreed to this when speaking with boyfriend and case management.
--- NOTE | 2017-09-23 15:09 | NUR ---
Morphine iv given per prn order for complaints of rib pain.
--- NOTE | 2017-09-23 15:18 | NUR ---
MBP was 78/50. Dr. Shetty notified.
--- NOTE | 2017-09-23 15:38 | NUR ---
Recieved emaciated, lethargic patient w/ mouth agape to ICCU #11, Family changed code status to full code after pt. being pallative care only, On arrival pt. responds to verbal command , slowly is hypotensive , hypoxic w/ SAT of 92% RR of 8. Fentnyl patch removed and wasted. Full assessment noted w/ reddened coccyx. sureprep and pad applied to dayna prominence. IVF up to infuse. Dr. Beltre made aware of need for continued or further orders.
--- NOTE | 2017-09-23 15:45 | NUR ---
Pt was transfered to ICCU via bed and report was given to Pamela Willett RN.
--- NOTE | 2017-09-23 19:51 | NUR ---
CALLED DOCTOR BARRY PATIENT BP IS 87/56 RESP 9 . PATIENT HAS COMPLAINTS OF PAIN ALL OVER. HE SAID HE WOULD COME TALKE TO THE PATIENT.
--- NOTE | 2017-09-23 19:52 | NUR ---
DOCTOR DEANDRA TO THE FLOOR TO SEE PATIENT. HE EXPLAINED TO HER THAT IF GIVEN PAIN MEDICATION COULD DROP HER BP AND DECREASE HER RESPIRATION PATIENTS CODE STATUS WAS DICUSSED WITH PATIENT.DUE TO END STAGE CA. DOCTOR INFORMED THE PATIENT THAT HE DID NOT FEEL COMFORTABLE GIVEING PATIENT PAIN MEDICATION WITH CURRENT VITALS.PATIENT SAID OK THAT SHE WOULD THINK ABOUT HER CODE STATUS.
--- NOTE | 2017-09-23 21:26 | NUR ---
CALLED DOCTOR REDDY PATIENTS BP IS 83/46 WITH RESP 9 DOCTOR REDDY SAID HE WOULD BE UP.
--- NOTE | 2017-09-23 22:06 | NUR ---
PATIENT BP 68/34 PATIENT STILL STATING TO DOCTOR BARRY TO DO EVERYTHING. PATIENT STARTED ON LEVOPHED PER DOCTOR BARRY.
--- NOTE | 2017-09-23 22:31 | NUR ---
DOCTOR REDDY DISCUSSED CODE STATUS AFTER FAMILY ARRIVED PATIENT TALKED WITH FAMILY AND DECIDED SHE WANTED TO BE A DNRCC PATIENT SIGNED FORM AND IT WAS WITNESSED BY 2 RN'S DOCTOR BARRY.AT THIS TIME LEVOPHED WAS BEEN STOPPED PER DOCTORS ORDER.
--- NOTE | 2017-09-23 23:06 | NUR ---
PATIENT MOANING IN PAIN. CALLED DOCTOR BARRY NEW ORDERS RECIEVED.
--- NOTE | 2017-09-23 23:31 | NUR ---
PATIENT GIVEN MORPHINE FOR PAIN AND ATIVAN FOR ANXIETY.
--- NOTE | 2017-09-23 23:57 | NUR ---
PATIENT STILL MOANING PATIENT GIVEN MORPHINE FOR PAIN AND DISCOMFORT. FAMILY AT BEDSIDE.
[2017-09-24 00:03] VITALS: BP 80/46
[2017-09-24 00:12] VITALS: BP 76/50
--- NOTE | 2017-09-24 02:39 | NUR ---
PATIENT STARTING TO MOAN PATIENT GIVEN MORPHINE PER ORDER
--- NOTE | 2017-09-24 03:29 | NUR ---
PATIENT GIVEN ATIVAN AND MORPHINE PER ORDER.
[2017-09-24 04:00] VITALS: BP 73/40
--- NOTE | 2017-09-24 04:16 | NUR ---
PATIENT GIVEN MOROPHINE PER PRN ORDER PATIENT MOANING.
--- NOTE | 2017-09-24 05:11 | NUR ---
PATIENT MEDICATED WITH MORPHINE FOR PAIN PER ORDER.
[2017-09-24 08:00] VITALS: BP 52/25
--- NOTE | 2017-09-24 08:13 | NUR ---
Unresponsive w/ mouth agape and sclera dry. Oral care given , cough and gag absent. Hypotensive. Family at bedside , to breakfast during AM care. Minimal repositioning . Eye lubricant ordered. Linens changed.
--- NOTE | 2017-09-24 08:37 | NUR ---
Family requested that Morphine be given. In Lieu of pt. being unresponsive. med was not given.
--- NOTE | 2017-09-24 10:08 | NUR ---
0944 bradycardic , apnec and hypotensive. 0946 asystole absent resp, pulse and bp. Family present on expiration , deboning team leader in and with family. One call notified and pt. was ruled out for donation. Eli notified of need.
--- NOTE | 2017-09-24 10:51 | NUR ---
Body sent to [facility]. awaiting [employer] from [facility].
--- NOTE | 2017-09-24 12:08 | NUR ---
bODY RELEASED TO [facility].
== END 2017-09-24 09:46 | disposition expired | DRG 754 ==
LOC: ED 18:55 → 5E 23:06 → EDHOLD 23:06 → 4E 23:50 → ICCU 09-22 05:15 → 5E 09-22 20:40 → ICCU 09-23 15:37
PROVIDERS: Emergency Medicine; Internal Medicine; Internal Medicine Nephrology; ADMIT Emergency Medicine
DX: C56.9 Malignant neoplasm of unspecified ovary (principal); N17.0 Acute kidney failure with tubular necrosis; G93.41 Metabolic encephalopathy; R18.0 Malignant ascites; E43 Unspecified severe protein-calorie malnutrition; J90 Pleural effusion, not elsewhere classified; I82.412 Acute embolism and thrombosis of left femoral vein; E87.2 Acidosis; D68.59 Other primary thrombophilia; K50.90 Crohn's disease, unspecified, without complications; E87.1 Hypo-osmolality and hyponatremia; K50.919 Crohn's disease, unspecified, with unspecified complications; F33.9 Major depressive disorder, recurrent, unspecified; Z68.1 Body mass index [BMI] 19.9 or less, adult; Z66 Do not resuscitate; Z51.5 Encounter for palliative care; I49.3 Ventricular premature depolarization; R62.7 Adult failure to thrive; E80.6 Other disorders of bilirubin metabolism; E87.8 Other disorders of electrolyte and fluid balance, not elsewhere classified; D63.0 Anemia in neoplastic disease; K64.8 Other hemorrhoids; E78.1 Pure hyperglyceridemia; E53.8 Deficiency of other specified B group vitamins; E55.9 Vitamin D deficiency, unspecified; K57.90 Diverticulosis of intestine, part unspecified, without perforation or abscess without bleeding; E78.2 Mixed hyperlipidemia; F41.1 Generalized anxiety disorder; R07.89 Other chest pain; K21.9 Gastro-esophageal reflux disease without esophagitis; Z79.899 Other long term (current) drug therapy; Z72.0 Tobacco use; Z82.49 Family history of ischemic heart disease and other diseases of the circulatory system; Z80.0 Family history of malignant neoplasm of digestive organs